=== PATIENT | male | born 1960 | race Caucasian/White ===

== ENCOUNTER 2018-06-06 15:55 | Inpatient (IN) | payer MEDICAID, OTHER ==
[2018-06-06] MEDS: ONDANSETRON 4 MG INJ IV (21:42)
[2018-06-06] MEDS: SOD CHLORIDE 0.9% 1,000 ML IV ×2 (21:42→23:08)
[2018-06-06] MEDS: KETOROLAC 15 MG INJ IV (21:42)
[2018-06-06] MEDS: BELLADONNA/PHENOBARBITAL TAB PO (21:43)
[2018-06-06] MEDS: LIDOCAINE/MYLANTA 40 ML BTL PO (21:43)
[2018-06-06 21:49] LABS: ADD MAN DIFF? NO
[2018-06-06 21:52] LABS: BASOPHILS % 0.3 % (0.0-2.0); EOSINOPHILS % 0.5 % (0.0-7.0); HEMATOCRIT 31.2 % (42.0-52.0); HEMOGLOBIN 9.8 g/dl (14.0-18.0); LYMPHOCYTES # 1.1 10^3/ul (0.8-2.9); MEAN CORPUSCULAR HEMOGLOBIN 25.4 pg (29.0-33.0); MEAN CORPUSCULAR HGB CONC 31.4 g/dl (32.0-37.0); MEAN CORPUSCULAR VOLUME 80.8 fl (82.0-101.0); MONOCYTE # 0.7 10^3/ul (0.3-0.9); MONOCYTES % 10.2 % (0.0-11.0); NEUTROPHIL # 4.6 10^3/ul (1.6-7.5); NEUTROPHILS % 71.7 % (39.0-77.0); PLATELET COUNT 297 10^3/UL (140-415); RED BLOOD COUNT 3.86 10^6/ul (4.70-6.10); RED CELL DISTRIBUTION WIDTH 12.8 % (11.5-14.5)
[2018-06-06 21:52] LABS: WHITE BLOOD COUNT 6.5 10^3/ul (4.8-10.8)
[2018-06-06 22:08] LABS: ALANINE AMINOTRANSFERASE 23 IU/L (13-69); ALBUMIN 4.4 g/dl (3.3-4.9); ALBUMIN/GLOBULIN RATIO 1.22; ALKALINE PHOSPHATASE 77 IU/L (42-121); ANION GAP 14 (5-13); ASPARTATE AMINO TRANSFERASE 19 IU/L (15-46); BILIRUBIN,INDIRECT 0.4 mg/dl (0-1.1); BILIRUBIN,TOTAL 0.4 mg/dl (0.2-1.3); BLOOD UREA NITROGEN 14 mg/dl (7-20); CALCIUM 9.2 mg/dl (8.4-10.2); CARBON DIOXIDE 28 mmol/L (21-31); CHLORIDE 100 mmol/L (97-110); CREATININE 0.86 mg/dl (0.61-1.24); Estimated GFR > 60 mL/min (>60); GLUCOSE 119 mg/dl (70-220); LIPASE 26 U/L (23-300); POTASSIUM 3.8 mmol/L (3.5-5.1); SODIUM 142 mmol/L (135-144)
[2018-06-06 22:14] LABS: INR 1.05; PROTIME 13.8 Sec (11.9-14.9); PT RATIO 1.1
[2018-06-06 22:15] LABS: PARTIAL THROMBOPLASTIN TIME 32.9 Sec (23.0-35.0)
[2018-06-06 22:18] LABS: ADD UMIC YES; UR ASCORBIC ACID NEGATIVE (NEGATIVE); UR BILIRUBIN (Dip) NEGATIVE (NEGATIVE); UR BLOOD (Dip) 1+ mg/dL (NEGATIVE); UR CLARITY SLIGHTLY CLOUDY (CLEAR); UR COLOR AMBER (YELLOW); UR GLUCOSE (Dip) NEGATIVE (NEGATIVE); UR KETONES (Dip) 2+ mg/dL (NEGATIVE); UR LEUKOCYTE ESTERASE (Dip) NEGATIVE Leu/ul (NEGATIVE); UR MUCUS MANY /HPF (NONE SEEN); UR NITRITE (Dip) NEGATIVE (NEGATIVE); UR RBC 10 /HPF (0-5); UR SPECIFIC GRAVITY (Dip) 1.033 (1.003-1.030); UR TOTAL PROTEIN (Dip) 2+ mg/dl (NEGATIVE); UR UROBILINOGEN (Dip) NEGATIVE (NEGATIVE); UR WBC 4 /HPF (0-5)
[2018-06-06 22:20] LABS: TROPONIN-I < 0.012 ng/ml (0.000-0.120)
[2018-06-06] MEDS: PIPER-TAZO 3.375 GM IV (PMX) 100 ML IVPB (23:03)
[2018-06-06] MEDS: IOHEXOL 14.3 MG(I)/ML (ADULT) BTL PO (23:30)
[2018-06-06] MEDS ORDERED: ACETAMINOPHEN 325 MG TAB PO (23:30)
[2018-06-06] MEDS ORDERED: NACL 0.9% 3 ML SYG IV (23:30)
[2018-06-06] MEDS ORDERED: morphine 2 MG INJ IV (23:30)
[2018-06-07] MEDS: SOD CHLORIDE 0.9% 1,000 ML IV ×3 (01:16→19:14)
[2018-06-07] MEDS: morphine 4 MG/ML VIAL IV ×2 (05:33→18:53)
[2018-06-07] MEDS: ALBUTEROL/IPRATROPIUM (NEB) 3 ML AMP HHN ×2 (05:39→22:54)
[2018-06-07 06:27] LABS: ADD MAN DIFF? NO
[2018-06-07 06:53] LABS: WHITE BLOOD COUNT 6.5 10^3/ul (4.8-10.8)
[2018-06-07 06:53] LABS: BASOPHILS % 0.2 % (0.0-2.0); EOSINOPHILS % 0.3 % (0.0-7.0); HEMATOCRIT 25.4 % (42.0-52.0); HEMOGLOBIN 8.1 g/dl (14.0-18.0); LYMPHOCYTES % 14.7 % (15.0-51.0); MEAN CORPUSCULAR HEMOGLOBIN 25.8 pg (29.0-33.0); MEAN CORPUSCULAR HGB CONC 31.9 g/dl (32.0-37.0); MEAN CORPUSCULAR VOLUME 80.9 fl (82.0-101.0); MONOCYTE # 0.5 10^3/ul (0.3-0.9); MONOCYTES % 7.8 % (0.0-11.0); NEUTROPHILS % 76.5 % (39.0-77.0); PLATELET COUNT 231 10^3/UL (140-415); RED BLOOD COUNT 3.14 10^6/ul (4.70-6.10); RED CELL DISTRIBUTION WIDTH 13.1 % (11.5-14.5)
[2018-06-07 07:10] LABS: HEMOGLOBIN A1C 5.2 % (0-5.9)
[2018-06-07 07:30] LABS: IRON 24 ug/dl (35-150)
[2018-06-07 07:35] LABS: ALANINE AMINOTRANSFERASE 21 IU/L (13-69); ALBUMIN 3.4 g/dl (3.3-4.9); ALBUMIN/GLOBULIN RATIO 1.21; ALKALINE PHOSPHATASE 58 IU/L (42-121); ANION GAP 11 (5-13); ASPARTATE AMINO TRANSFERASE 15 IU/L (15-46); BILIRUBIN,INDIRECT 0.4 mg/dl (0-1.1); BILIRUBIN,TOTAL 0.4 mg/dl (0.2-1.3); BLOOD UREA NITROGEN 13 mg/dl (7-20); CALCIUM 8.4 mg/dl (8.4-10.2); CARBON DIOXIDE 26 mmol/L (21-31); CHLORIDE 106 mmol/L (97-110); CHOL/HDL RATIO 2.4 RATIO; CHOLESTEROL 108 mg/dl (100-200); CREATININE 0.96 mg/dl (0.61-1.24); Estimated GFR > 60 mL/min (>60); GLUCOSE 98 mg/dl (70-220); HDL CHOLESTEROL 44 mg/dl (30-78); LDL CHOLESTEROL,CALCULATED 43 mg/dl; POTASSIUM 3.6 mmol/L (3.5-5.1); SODIUM 143 mmol/L (135-144); TOTAL PROTEIN 6.2 g/dl (6.1-8.1); TRIGLYCERIDES 105 mg/dl (0-149)
[2018-06-07 07:39] LABS: % IRON SATURATION 6 % SAT (22-52); TOTAL IRON BINDING CAPACITY 377 ug/dl (241-421)
[2018-06-07 07:56] LABS: FERRITIN 12.5 ng/ml (11.1-264.0)
[2018-06-07 11:25] LABS: ADD MAN DIFF? NO
[2018-06-07 11:27] LABS: WHITE BLOOD COUNT 4.8 10^3/ul (4.8-10.8)
[2018-06-07 11:27] LABS: BASOPHILS % 0.2 % (0.0-2.0); EOSINOPHILS % 0.8 % (0.0-7.0); HEMATOCRIT 23.6 % (42.0-52.0); HEMOGLOBIN 7.4 g/dl (14.0-18.0); LYMPHOCYTES # 1.1 10^3/ul (0.8-2.9); LYMPHOCYTES % 22.3 % (15.0-51.0); MEAN CORPUSCULAR HEMOGLOBIN 25.6 pg (29.0-33.0); MEAN CORPUSCULAR HGB CONC 31.4 g/dl (32.0-37.0); MEAN CORPUSCULAR VOLUME 81.7 fl (82.0-101.0); MEAN PLATELET VOLUME 9.7 fl (7.4-10.4); MONOCYTE # 0.5 10^3/ul (0.3-0.9); MONOCYTES % 9.5 % (0.0-11.0); NEUTROPHIL # 3.2 10^3/ul (1.6-7.5); PLATELET COUNT 212 10^3/UL (140-415); RED BLOOD COUNT 2.89 10^6/ul (4.70-6.10); RED CELL DISTRIBUTION WIDTH 12.9 % (11.5-14.5)
[2018-06-07] MEDS: ONDANSETRON 4 MG INJ IV ×2 (13:03→18:51)
[2018-06-07 16:44] LABS: OCCULT BLOOD STOOL POSITIVE (NEGATIVE)
[2018-06-07 17:09] LABS: ADD MAN DIFF? NO
[2018-06-07 17:11] LABS: BASOPHILS % 0.2 % (0.0-2.0); EOSINOPHILS % 0.3 % (0.0-7.0); HEMATOCRIT 29.5 % (42.0-52.0); HEMOGLOBIN 9.2 g/dl (14.0-18.0); LYMPHOCYTES # 0.8 10^3/ul (0.8-2.9); LYMPHOCYTES % 12.4 % (15.0-51.0); MEAN CORPUSCULAR HEMOGLOBIN 25.7 pg (29.0-33.0); MEAN CORPUSCULAR HGB CONC 31.2 g/dl (32.0-37.0); MEAN CORPUSCULAR VOLUME 82.4 fl (82.0-101.0); MEAN PLATELET VOLUME 9.5 fl (7.4-10.4); MONOCYTE # 0.5 10^3/ul (0.3-0.9); MONOCYTES % 6.9 % (0.0-11.0); NEUTROPHIL # 5.2 10^3/ul (1.6-7.5); NEUTROPHILS % 79.9 % (39.0-77.0); PLATELET COUNT 256 10^3/UL (140-415); RED BLOOD COUNT 3.58 10^6/ul (4.70-6.10); RED CELL DISTRIBUTION WIDTH 12.9 % (11.5-14.5)
[2018-06-07 17:11] LABS: WHITE BLOOD COUNT 6.5 10^3/ul (4.8-10.8)
[2018-06-07] MEDS: SOD FERRIC GLUC COMPLX 125 MG in SOD CHLORIDE 0.9% 100 ML IVPB (17:36)
[2018-06-07] MEDS: metroNIDAZOLE 500 MG/NS (PMX) 100 ML IVPB ×2 (19:30→23:37)
[2018-06-07] MEDS: CIPROFLOXACIN 400MG/D5W 200 ML IVPB ×3 (21:00→22:37)
[2018-06-07 23:22] LABS: ADD MAN DIFF? NO
[2018-06-07 23:25] LABS: BASOPHILS % 0.3 % (0.0-2.0); EOSINOPHILS % 0.3 % (0.0-7.0); HEMATOCRIT 28.4 % (42.0-52.0); HEMOGLOBIN 8.7 g/dl (14.0-18.0); LYMPHOCYTES # 0.7 10^3/ul (0.8-2.9); LYMPHOCYTES % 12.1 % (15.0-51.0); MEAN CORPUSCULAR HEMOGLOBIN 25.3 pg (29.0-33.0); MEAN CORPUSCULAR HGB CONC 30.6 g/dl (32.0-37.0); MEAN CORPUSCULAR VOLUME 82.6 fl (82.0-101.0); MEAN PLATELET VOLUME 10.2 fl (7.4-10.4); MONOCYTE # 0.5 10^3/ul (0.3-0.9); MONOCYTES % 7.5 % (0.0-11.0); NEUTROPHIL # 4.8 10^3/ul (1.6-7.5); NEUTROPHILS % 79.5 % (39.0-77.0); PLATELET COUNT 266 10^3/UL (140-415); RED BLOOD COUNT 3.44 10^6/ul (4.70-6.10)
[2018-06-08] MEDS: SOD CHLORIDE 0.9% 1,000 ML IV ×2 (05:16→14:43)
[2018-06-08] MEDS: metroNIDAZOLE 500 MG/NS (PMX) 100 ML IVPB ×3 (05:17→22:37)
[2018-06-08] MEDS: ONDANSETRON 4 MG INJ IV ×2 (05:17→12:28)
[2018-06-08 07:16] LABS: C-REACTIVE PROTEIN 4.2 mg/dl (0.0-0.9)
[2018-06-08 07:57] LABS: ERYTHROCYTE SEDIMENTATION RATE 27 mm/Hr (0-20)
[2018-06-08] MEDS: CIPROFLOXACIN 400MG/D5W 200 ML IVPB ×2 (09:18→21:02)
[2018-06-08] MEDS: SOD FERRIC GLUC COMPLX 125 MG in SOD CHLORIDE 0.9% 100 ML IVPB (12:28)
[2018-06-08] MEDS: METOCLOPRAMIDE 10 MG INJ IV ×3 (12:32→23:29)
[2018-06-08] MEDS ORDERED: SOD FERRIC GLUC COMPLX 125 MG in SOD CHLORIDE 0.9% 100 ML IVPB (15:00)
[2018-06-08] MEDS: ALBUTEROL/IPRATROPIUM (NEB) 3 ML AMP HHN (16:19)
[2018-06-09] MEDS: SOD CHLORIDE 0.9% 1,000 ML IV ×2 (01:14→05:04)
[2018-06-09] MEDS: METOCLOPRAMIDE 10 MG INJ IV ×3 (05:04→18:29)
[2018-06-09] MEDS: metroNIDAZOLE 500 MG/NS (PMX) 100 ML IVPB ×3 (05:20→22:57)
[2018-06-09 07:40] LABS: ADD MAN DIFF? NO
[2018-06-09 07:44] LABS: BASOPHILS % 0.2 % (0.0-2.0); EOSINOPHILS % 0.5 % (0.0-7.0); HEMOGLOBIN 7.7 g/dl (14.0-18.0); LYMPHOCYTES # 1.4 10^3/ul (0.8-2.9); MEAN CORPUSCULAR HEMOGLOBIN 25.4 pg (29.0-33.0); MEAN CORPUSCULAR HGB CONC 30.8 g/dl (32.0-37.0); MEAN CORPUSCULAR VOLUME 82.5 fl (82.0-101.0); MEAN PLATELET VOLUME 10.1 fl (7.4-10.4); MONOCYTE # 0.8 10^3/ul (0.3-0.9); MONOCYTES % 8.9 % (0.0-11.0); NEUTROPHIL # 6.4 10^3/ul (1.6-7.5); NEUTROPHILS % 73.7 % (39.0-77.0); PLATELET COUNT 293 10^3/UL (140-415); RED BLOOD COUNT 3.03 10^6/ul (4.70-6.10)
[2018-06-09 07:44] LABS: WHITE BLOOD COUNT 8.7 10^3/ul (4.8-10.8)
[2018-06-09 08:03] LABS: ANION GAP 13 (5-13); BLOOD UREA NITROGEN 10 mg/dl (7-20); CALCIUM 8.6 mg/dl (8.4-10.2); CARBON DIOXIDE 25 mmol/L (21-31); CHLORIDE 108 mmol/L (97-110); CREATININE 0.94 mg/dl (0.61-1.24); Estimated GFR > 60 mL/min (>60); GLUCOSE 119 mg/dl (70-220); POTASSIUM 3.5 mmol/L (3.5-5.1); SODIUM 146 mmol/L (135-144)
[2018-06-09] MEDS: CIPROFLOXACIN 400MG/D5W 200 ML IVPB ×2 (09:41→21:51)
[2018-06-09] MEDS: ALBUTEROL/IPRATROPIUM (NEB) 3 ML AMP HHN (10:03)
[2018-06-09] MEDS: SOD FERRIC GLUC COMPLX 125 MG in SOD CHLORIDE 0.9% 100 ML IVPB (12:28)
[2018-06-09 13:26] LABS: ANCA SCREEN NEGATIVE (NEGATIVE)
[2018-06-09 14:56] LABS: MYELOPEROXIDASE ANTIBODY <1.0 AI; PROTEINASE-3 ANTIBODY <1.0 AI
[2018-06-09] MEDS: HYDROCORTISONE 25 MG SUPP PR ×2 (15:22→21:52)
[2018-06-10] MEDS: METOCLOPRAMIDE 10 MG INJ IV ×4 (00:28→18:00)
[2018-06-10] MEDS: SOD CHLORIDE 0.9% 1,000 ML IV ×3 (03:35→17:14)
[2018-06-10] MEDS: metroNIDAZOLE 500 MG/NS (PMX) 100 ML IVPB ×3 (05:43→22:04)
[2018-06-10] MEDS: ALBUTEROL/IPRATROPIUM (NEB) 3 ML AMP HHN ×2 (05:53→19:57)
[2018-06-10 06:36] LABS: WHITE BLOOD COUNT 6.9 10^3/ul (4.8-10.8)
[2018-06-10 06:36] LABS: ABNORMAL IP MESSAGE 1; HEMATOCRIT 21.4 % (42.0-52.0); MEAN CORPUSCULAR HEMOGLOBIN 25.7 pg (29.0-33.0); MEAN CORPUSCULAR HGB CONC 30.8 g/dl (32.0-37.0); MEAN CORPUSCULAR VOLUME 83.3 fl (82.0-101.0); MEAN PLATELET VOLUME 10.3 fl (7.4-10.4); PLATELET COUNT 239 10^3/UL (140-415); POSITIVE DIFF @See below; RED BLOOD COUNT 2.57 10^6/ul (4.70-6.10); RED CELL DISTRIBUTION WIDTH 14.6 % (11.5-14.5)
[2018-06-10 06:58] LABS: ANION GAP 12 (5-13); BLOOD UREA NITROGEN 8 mg/dl (7-20); CALCIUM 8.2 mg/dl (8.4-10.2); CARBON DIOXIDE 24 mmol/L (21-31); CHLORIDE 108 mmol/L (97-110); CREATININE 0.87 mg/dl (0.61-1.24); Estimated GFR > 60 mL/min (>60); GLUCOSE 106 mg/dl (70-220); POTASSIUM 3.3 mmol/L (3.5-5.1); SODIUM 144 mmol/L (135-144)
[2018-06-10 07:31] LABS: ADD MAN DIFF? YES; HEMOGLOBIN 6.6 g/dl (14.0-18.0)
[2018-06-10] MEDS: BISACODYL (EC) 5 MG TAB PO ×2 (08:00→17:34)
[2018-06-10] MEDS: MAGNESIUM CITRATE 300 ML BTL PO (09:08)
[2018-06-10] MEDS: POLYETHYLENE GLYCOL 3350 119 GM POWDER PO ×2 (09:08→15:17)
[2018-06-10] MEDS: CIPROFLOXACIN 400MG/D5W 200 ML IVPB ×2 (09:13→20:53)
[2018-06-10] MEDS: HYDROCORTISONE 25 MG SUPP PR ×2 (09:13→20:53)
[2018-06-10 10:28] LABS: ANISOCYTOSIS 2+ (0-0); BAND NEUTROPHILS #M 0.2 10^3/ul (0.0-0.6); BAND NEUTROPHILS % (M) 3 % (0-4); EOSINOPHILS % (M) 1 % (0-7); LYMPHOCYTES #M 0.6 10^3/ul (0.8-2.9); LYMPHOCYTES % (M) 9 % (15-51); METAMYELOCYTES %M 1 % (0-0); MICROCYTOSIS 2+ (0-0); MONOCYTE #M 0.1 10^3/ul (0.3-0.9); MONOCYTES % (M) 2 % (0-11); OVALOCYTES 2+ (0-0); PLATELET ESTIMATE NORMAL; POIKILOCYTOSIS 1+ (0-0); POLYCHROMASIA 2+ (0-0); SEG NEUT #M 5.8 10^3/ul (1.6-7.5); SEGMENTED NEUTROPHILS (M) % 84 % (39-77); SMUDGE%M 43 % (0-0)
[2018-06-10] MEDS: POTASSIUM CHLORIDE 20 MEQ POWDER FOR ORAL SOLN PO (13:51)
[2018-06-10] MEDS: SOD FERRIC GLUC COMPLX 125 MG in SOD CHLORIDE 0.9% 100 ML IVPB (15:01)
[2018-06-11] MEDS: METOCLOPRAMIDE 10 MG INJ IV ×4 (00:36→17:28)
[2018-06-11] MEDS: SOD CHLORIDE 0.9% 1,000 ML IV ×3 (02:43→22:36)
[2018-06-11] MEDS: metroNIDAZOLE 500 MG/NS (PMX) 100 ML IVPB ×3 (06:04→22:36)
[2018-06-11 06:12] LABS: ADD MAN DIFF? NO
[2018-06-11 06:25] LABS: ABNORMAL IP MESSAGE 1; BASOPHILS % 0.2 % (0.0-2.0); EOSINOPHILS # 0.1 10^3/ul (0.0-0.5); HEMATOCRIT 21.4 % (42.0-52.0); LYMPHOCYTES # 0.7 10^3/ul (0.8-2.9); LYMPHOCYTES % 11.3 % (15.0-51.0); MEAN CORPUSCULAR HEMOGLOBIN 27.2 pg (29.0-33.0); MEAN CORPUSCULAR HGB CONC 32.2 g/dl (32.0-37.0); MEAN CORPUSCULAR VOLUME 84.3 fl (82.0-101.0); MONOCYTE # 0.6 10^3/ul (0.3-0.9); MONOCYTES % 9.2 % (0.0-11.0); NEUTROPHIL # 4.7 10^3/ul (1.6-7.5); NEUTROPHILS % 77.3 % (39.0-77.0); PLATELET COUNT 218 10^3/UL (140-415); POSITIVE DIFF @See below; RED BLOOD COUNT 2.54 10^6/ul (4.70-6.10); RED CELL DISTRIBUTION WIDTH 14.6 % (11.5-14.5)
[2018-06-11 06:25] LABS: WHITE BLOOD COUNT 6.1 10^3/ul (4.8-10.8)
[2018-06-11 06:33] LABS: HEMOGLOBIN 6.9 g/dl (14.0-18.0)
[2018-06-11 06:44] LABS: ANION GAP 11 (5-13); BLOOD UREA NITROGEN 5 mg/dl (7-20); CARBON DIOXIDE 23 mmol/L (21-31); CHLORIDE 108 mmol/L (97-110); Estimated GFR > 60 mL/min (>60); GLUCOSE 101 mg/dl (70-220); POTASSIUM 3.2 mmol/L (3.5-5.1); SODIUM 142 mmol/L (135-144)
[2018-06-11 07:42] LABS: IMMEDIATE SPIN CROSSMATCH 1 2
[2018-06-11] MEDS: HYDROCORTISONE 25 MG SUPP PR ×2 (09:00→21:00)
[2018-06-11] MEDS: CIPROFLOXACIN 400MG/D5W 200 ML IVPB ×2 (10:42→21:26)
[2018-06-11] MEDS: SOD FERRIC GLUC COMPLX 125 MG in SOD CHLORIDE 0.9% 100 ML IVPB (14:16)
[2018-06-11] MEDS: BISACODYL (EC) 5 MG TAB PO (14:22)
[2018-06-11] MEDS: ONDANSETRON 4 MG INJ IV (16:35)
[2018-06-11] MEDS: POTASSIUM CHLORIDE (SR) 20 MEQ TAB PO (17:13)
[2018-06-11] MEDS: MAGNESIUM CITRATE 300 ML BTL PO (17:28)
[2018-06-11] MEDS: POLYETHYLENE GLYCOL 17 GM PACKET PO (17:58)
[2018-06-11] MEDS: ALBUTEROL/IPRATROPIUM (NEB) 3 ML AMP HHN (22:50)
[2018-06-12] MEDS: METOCLOPRAMIDE 10 MG INJ IV ×4 (00:28→19:01)
[2018-06-12] MEDS: POLYETHYLENE GLYCOL 17 GM PACKET PO (05:19)
[2018-06-12] MEDS: metroNIDAZOLE 500 MG/NS (PMX) 100 ML IVPB ×3 (05:20→22:55)
[2018-06-12] MEDS ORDERED: PROPOFOL 200 MG INJ (07:00)
[2018-06-12 07:16] LABS: ADD MAN DIFF? NO
[2018-06-12 07:19] LABS: WHITE BLOOD COUNT 5.3 10^3/ul (4.8-10.8)
[2018-06-12 07:19] LABS: BASOPHILS % 0.4 % (0.0-2.0); EOSINOPHILS # 0.1 10^3/ul (0.0-0.5); EOSINOPHILS % 0.9 % (0.0-7.0); HEMATOCRIT 25.9 % (42.0-52.0); HEMOGLOBIN 8.3 g/dl (14.0-18.0); LYMPHOCYTES # 0.7 10^3/ul (0.8-2.9); LYMPHOCYTES % 12.4 % (15.0-51.0); MEAN CORPUSCULAR HEMOGLOBIN 27.5 pg (29.0-33.0); MEAN CORPUSCULAR VOLUME 85.8 fl (82.0-101.0); MEAN PLATELET VOLUME 9.6 fl (7.4-10.4); MONOCYTE # 0.6 10^3/ul (0.3-0.9); MONOCYTES % 10.3 % (0.0-11.0); NEUTROPHILS % 75.3 % (39.0-77.0); PLATELET COUNT 212 10^3/UL (140-415); RED BLOOD COUNT 3.02 10^6/ul (4.70-6.10); RED CELL DISTRIBUTION WIDTH 16.2 % (11.5-14.5)
[2018-06-12 07:41] LABS: MAGNESIUM 1.9 mg/dl (1.7-2.5)
[2018-06-12 07:41] LABS: PHOSPHORUS 3.6 mg/dl (2.5-4.9)
[2018-06-12 07:44] LABS: ANION GAP 10 (5-13); BLOOD UREA NITROGEN 3 mg/dl (7-20); CALCIUM 8.3 mg/dl (8.4-10.2); CARBON DIOXIDE 21 mmol/L (21-31); CHLORIDE 108 mmol/L (97-110); CREATININE 0.78 mg/dl (0.61-1.24); Estimated GFR > 60 mL/min (>60); GLUCOSE 100 mg/dl (70-220); POTASSIUM 3.3 mmol/L (3.5-5.1); SODIUM 139 mmol/L (135-144)
[2018-06-12] MEDS: BISACODYL (EC) 5 MG TAB PO (08:07)
[2018-06-12] MEDS: SOD CHLORIDE 0.9% 1,000 ML IV ×2 (08:07→14:39)
[2018-06-12] MEDS: HYDROCORTISONE 25 MG SUPP PR ×2 (08:08→21:39)
[2018-06-12] MEDS: CIPROFLOXACIN 400MG/D5W 200 ML IVPB ×2 (09:50→21:36)
[2018-06-12] MEDS: PROPOFOL 20 ML (17:08)
[2018-06-12] MEDS: FENTAnyl 50 MCG/ML VIAL (17:09)
[2018-06-12] MEDS ORDERED: ONDANSETRON 4 MG INJ IV (17:30)
[2018-06-12] MEDS: POTASSIUM CHLORIDE (SR) 20 MEQ TAB PO (19:00)
[2018-06-12] MEDS: ALBUTEROL/IPRATROPIUM (NEB) 3 ML AMP HHN (19:47)
[2018-06-13] MEDS: METOCLOPRAMIDE 10 MG INJ IV ×5 (01:25→23:09)
[2018-06-13] MEDS: SOD CHLORIDE 0.9% 1,000 ML IV ×3 (05:14→20:36)
[2018-06-13] MEDS: metroNIDAZOLE 500 MG/NS (PMX) 100 ML IVPB ×3 (06:18→23:08)
[2018-06-13] MEDS: IOHEXOL 14.3 MG(I)/ML (ADULT) BTL PO (07:48)
[2018-06-13] MEDS: DIATR MEGLU/DIATRIZOATE SODIUM 120 ML BTL (07:49)
[2018-06-13] MEDS: CIPROFLOXACIN 400MG/D5W 200 ML IVPB ×2 (08:39→20:35)
[2018-06-13] MEDS: HYDROCORTISONE 25 MG SUPP PR ×2 (08:39→20:36)
[2018-06-13 13:15] LABS: ADD MAN DIFF? NO
[2018-06-13 13:17] LABS: WHITE BLOOD COUNT 6.3 10^3/ul (4.8-10.8)
[2018-06-13 13:17] LABS: BASOPHILS % 0.2 % (0.0-2.0); EOSINOPHILS % 0.6 % (0.0-7.0); HEMATOCRIT 27.2 % (42.0-52.0); HEMOGLOBIN 8.9 g/dl (14.0-18.0); LYMPHOCYTES # 0.9 10^3/ul (0.8-2.9); LYMPHOCYTES % 14.3 % (15.0-51.0); MEAN CORPUSCULAR HEMOGLOBIN 27.6 pg (29.0-33.0); MEAN CORPUSCULAR HGB CONC 32.7 g/dl (32.0-37.0); MEAN CORPUSCULAR VOLUME 84.5 fl (82.0-101.0); MEAN PLATELET VOLUME 10.3 fl (7.4-10.4); MONOCYTE # 0.6 10^3/ul (0.3-0.9); MONOCYTES % 9.8 % (0.0-11.0); NEUTROPHIL # 4.7 10^3/ul (1.6-7.5); NEUTROPHILS % 74.5 % (39.0-77.0); PLATELET COUNT 249 10^3/UL (140-415); RED BLOOD COUNT 3.22 10^6/ul (4.70-6.10); RED CELL DISTRIBUTION WIDTH 16.7 % (11.5-14.5)
[2018-06-13 13:35] LABS: ANION GAP 16 (5-13); BLOOD UREA NITROGEN < 2 mg/dl (7-20); CALCIUM 8.2 mg/dl (8.4-10.2); CARBON DIOXIDE 20 mmol/L (21-31); CHLORIDE 104 mmol/L (97-110); CREATININE 0.68 mg/dl (0.61-1.24); Estimated GFR > 60 mL/min (>60); GLUCOSE 111 mg/dl (70-220); SODIUM 140 mmol/L (135-144)
[2018-06-13] MEDS: PANTOPRAZOLE (EC) 40 MG TAB PO (17:31)
[2018-06-13] MEDS: ALBUTEROL/IPRATROPIUM (NEB) 3 ML AMP HHN (18:01)
[2018-06-13] MEDS: POTASSIUM CHLORIDE (SR) 20 MEQ TAB PO (18:33)
[2018-06-13] MEDS ORDERED: morphine LIQ (10 MG/5 ML) CUP PO (21:30)
[2018-06-14] MEDS: PANTOPRAZOLE (EC) 40 MG TAB PO (05:47)
[2018-06-14] MEDS: METOCLOPRAMIDE 10 MG INJ IV ×2 (05:47→12:41)
[2018-06-14] MEDS: metroNIDAZOLE 500 MG/NS (PMX) 100 ML IVPB ×2 (05:47→14:05)
[2018-06-14 08:06] LABS: ADD MAN DIFF? NO
[2018-06-14 08:08] LABS: WHITE BLOOD COUNT 7.5 10^3/ul (4.8-10.8)
[2018-06-14 08:08] LABS: BASOPHILS % 0.3 % (0.0-2.0); EOSINOPHILS # 0.1 10^3/ul (0.0-0.5); EOSINOPHILS % 0.7 % (0.0-7.0); HEMATOCRIT 26.3 % (42.0-52.0); HEMOGLOBIN 8.4 g/dl (14.0-18.0); LYMPHOCYTES # 1.4 10^3/ul (0.8-2.9); LYMPHOCYTES % 18.4 % (15.0-51.0); MEAN CORPUSCULAR HEMOGLOBIN 27.1 pg (29.0-33.0); MEAN CORPUSCULAR HGB CONC 31.9 g/dl (32.0-37.0); MEAN CORPUSCULAR VOLUME 84.8 fl (82.0-101.0); MEAN PLATELET VOLUME 10.7 fl (7.4-10.4); MONOCYTE # 0.9 10^3/ul (0.3-0.9); MONOCYTES % 11.3 % (0.0-11.0); NEUTROPHIL # 5.2 10^3/ul (1.6-7.5); NEUTROPHILS % 68.8 % (39.0-77.0); PLATELET COUNT 250 10^3/UL (140-415); POSITIVE DIFF @See below; RED CELL DISTRIBUTION WIDTH 17.7 % (11.5-14.5)
[2018-06-14 08:34] LABS: ANION GAP 7 (5-13); CARBON DIOXIDE 22 mmol/L (21-31); CHLORIDE 111 mmol/L (97-110); CREATININE 0.72 mg/dl (0.61-1.24); Estimated GFR > 60 mL/min (>60); GLUCOSE 102 mg/dl (70-220); POTASSIUM 3.4 mmol/L (3.5-5.1); SODIUM 140 mmol/L (135-144)
[2018-06-14 08:44] LABS: BLOOD UREA NITROGEN < 2 mg/dl (7-20)
[2018-06-14] MEDS: CIPROFLOXACIN 400MG/D5W 200 ML IVPB (09:16)
[2018-06-14] MEDS: HYDROCORTISONE 25 MG SUPP PR (09:19)
[2018-06-14 09:21] LABS: ANISOCYTOSIS 1+ (0-0); BAND NEUTROPHILS #M 0.3 10^3/ul (0.0-0.6); BAND NEUTROPHILS % (M) 5 % (0-4); ELLIPTO 1+ (0-0); ERYTHROBLAST% (NRBC) (M) 1 % (0-0); GIANT THROMBO% (M) 2 % (0-0); LYMPHOCYTES % (M) 14 % (15-51); MICROCYTOSIS 1+ (0-0); MONOCYTE #M 0.1 10^3/ul (0.3-0.9); MONOCYTES % (M) 2 % (0-11); PLATELET ESTIMATE NORMAL; POIKILOCYTOSIS 1+ (0-0); POLYCHROMASIA 2+ (0-0); SEG NEUT #M 5.9 10^3/ul (1.6-7.5); SEGMENTED NEUTROPHILS (M) % 79 % (39-77); SMUDGE%M 7 % (0-0)
[2018-06-14] MEDS: SOD CHLORIDE 0.9% 1,000 ML IV (09:21)
[2018-06-14] MEDS: POTASSIUM CHLORIDE (SR) 20 MEQ TAB PO (14:05)
[2018-06-14] MEDS: ALBUTEROL/IPRATROPIUM (NEB) 3 ML AMP HHN (14:51)
== END 2018-06-14 21:12 | disposition home or self-care (01) | DRG 378 ==
LOC: 5EC 23:05 → E/R 15:55
PROC: 30233N1 Transfusion of Nonautologous Red Blood Cells into Peripheral Vein, Percutaneous Approach (ICD-10-PCS; principal; 2018-06-12 16:00)
PROC: 0DBK8ZX Excision of Ascending Colon, Via Natural or Artificial Opening Endoscopic, Diagnostic (ICD-10-PCS; 2018-06-12 16:00)
PROC: 0DBP8ZX Excision of Rectum, Via Natural or Artificial Opening Endoscopic, Diagnostic (ICD-10-PCS; 2018-06-12 16:00)
PROC: 0DB58ZX Excision of Esophagus, Via Natural or Artificial Opening Endoscopic, Diagnostic (ICD-10-PCS; 2018-06-12 16:00)
DX: K92.1 Melena (principal); K56.609 Unspecified intestinal obstruction, unspecified as to partial versus complete obstruction; K52.9 Noninfective gastroenteritis and colitis, unspecified; D50.0 Iron deficiency anemia secondary to blood loss (chronic); J45.909 Unspecified asthma, uncomplicated; D49.512 Neoplasm of unspecified behavior of left kidney; K63.5 Polyp of colon; K26.9 Duodenal ulcer, unspecified as acute or chronic, without hemorrhage or perforation; K20.9 Esophagitis, unspecified; R31.29 Other microscopic hematuria
CPT/HCPCS: 36415; 36430; 74176; 74250; 76775; 78278; 80048; 80053; 80061; 81001; 82270; 82378; 82728; 83036; 83540; 83690; 83735; 84100; 84443; 84484; 85025; 85610; 85651; 85730; 86021; 86140; 86850; 86900; 86901; 86920; 88305; 88312; 88313; 93005; 94640; 94664; 96374; 96375; 99285-25

== ENCOUNTER 2018-10-01 08:28 | Inpatient (IN) | payer MEDICAID ==
[2018-10-01] MEDS: SOD CHLORIDE 0.9% 1,000 ML IV (10:04)
[2018-10-01 10:49] LABS: ADD MAN DIFF? NO
[2018-10-01 10:52] LABS: WHITE BLOOD COUNT 4.2 10^3/ul (4.8-10.8)
[2018-10-01 10:52] LABS: ABNORMAL IP MESSAGE 1; BASOPHILS % 0.5 % (0.0-2.0); EOSINOPHILS # 0.1 10^3/ul (0.0-0.5); EOSINOPHILS % 1.4 % (0.0-7.0); HEMOGLOBIN 7.2 g/dl (14.0-18.0); LYMPHOCYTES # 1.4 10^3/ul (0.8-2.9); LYMPHOCYTES % 32.5 % (15.0-51.0); MEAN CORPUSCULAR HEMOGLOBIN 18.7 pg (29.0-33.0); MEAN CORPUSCULAR HGB CONC 28.8 g/dl (32.0-37.0); MEAN CORPUSCULAR VOLUME 64.9 fl (82.0-101.0); MEAN PLATELET VOLUME 10.1 fl (7.4-10.4); MONOCYTE # 0.4 10^3/ul (0.3-0.9); MONOCYTES % 9.9 % (0.0-11.0); NEUTROPHIL # 2.3 10^3/ul (1.6-7.5); NEUTROPHILS % 55.5 % (39.0-77.0); PLATELET COUNT 420 10^3/UL (140-415); POSITIVE DIFF @See below; RED BLOOD COUNT 3.85 10^6/ul (4.70-6.10); RED CELL DISTRIBUTION WIDTH 17.7 % (11.5-14.5)
[2018-10-01 11:10] LABS: ALANINE AMINOTRANSFERASE 29 IU/L (13-69); ALBUMIN 4.2 g/dl (3.3-4.9); ALKALINE PHOSPHATASE 72 IU/L (42-121); ANION GAP 6 (5-13); ASPARTATE AMINO TRANSFERASE 18 IU/L (15-46); BILIRUBIN,INDIRECT 0.5 mg/dl (0-1.1); BILIRUBIN,TOTAL 0.5 mg/dl (0.2-1.3); BLOOD UREA NITROGEN 13 mg/dl (7-20); CALCIUM 9.2 mg/dl (8.4-10.2); CARBON DIOXIDE 26 mmol/L (21-31); CHLORIDE 108 mmol/L (97-110); CREATININE 0.78 mg/dl (0.61-1.24); Estimated GFR > 60 mL/min (>60); GLUCOSE 111 mg/dl (70-220); LIPASE 60 U/L (23-300); POTASSIUM 4.2 mmol/L (3.5-5.1); SODIUM 140 mmol/L (135-144); TOTAL PROTEIN 7.7 g/dl (6.1-8.1)
[2018-10-01 11:12] LABS: INR 1.01; PROTIME 13.4 Sec (11.9-14.9)
[2018-10-01 11:13] LABS: PARTIAL THROMBOPLASTIN TIME 30.3 Sec (23.0-35.0)
[2018-10-01] MEDS ORDERED: ZOLPIDEM 5 MG TAB PO (15:00)
[2018-10-01] MEDS: DOCUSATE SODIUM 100 MG CAP PO (15:00)
[2018-10-01] MEDS ORDERED: ACETAMINOPHEN 325 MG TAB PO (15:00)
[2018-10-01] MEDS ORDERED: HYDROCODONE/APAP (5/325) TAB PO (15:00)
[2018-10-01] MEDS: ALBUTEROL 0.083% (NEB) 2.5 MG/3 ML AMP HHN (15:00)
[2018-10-01] MEDS: MAGNESIUM CITRATE 300 ML BTL PO (19:11)
[2018-10-01] MEDS: BISACODYL (EC) 5 MG TAB PO (19:12)
[2018-10-01 20:59] LABS: HEMATOCRIT 26.5 % (42.0-52.0); HEMOGLOBIN 7.9 g/dl (14.0-18.0)
[2018-10-01] MEDS: POLYETHYLENE GLYCOL 3350 119 GM POWDER PO (21:17)
[2018-10-01] MEDS: MONTELUKAST 10 MG TAB PO (21:18)
[2018-10-01 22:03] LABS: IMMEDIATE SPIN CROSSMATCH 1 2
[2018-10-01] MEDS: SOD CHLORIDE 0.9% 250 ML IV* (22:24)
[2018-10-02] MEDS: DEXTROSE 5%-0.45% NACL 1,000 ML IV ×2 (01:22→13:31)
[2018-10-02] MEDS: DOCUSATE SODIUM 100 MG CAP PO ×2 (03:00→15:00)
[2018-10-02] MEDS ORDERED: PANTOPRAZOLE (EC) 40 MG TAB PO (04:52)
[2018-10-02] MEDS: POLYETHYLENE GLYCOL 3350 119 GM POWDER PO (05:45)
[2018-10-02] MEDS: PANTOPRAZOLE (EC) 40 MG TAB PO (05:45)
[2018-10-02 07:19] LABS: ADD MAN DIFF? NO
[2018-10-02 07:23] LABS: WHITE BLOOD COUNT 6.5 10^3/ul (4.8-10.8)
[2018-10-02 07:23] LABS: ABNORMAL IP MESSAGE 1; BASOPHILS % 0.3 % (0.0-2.0); EOSINOPHILS # 0.1 10^3/ul (0.0-0.5); EOSINOPHILS % 1.2 % (0.0-7.0); HEMOGLOBIN 9.8 g/dl (14.0-18.0); LYMPHOCYTES # 1.2 10^3/ul (0.8-2.9); MEAN CORPUSCULAR HEMOGLOBIN 20.6 pg (29.0-33.0); MEAN CORPUSCULAR HGB CONC 29.7 g/dl (32.0-37.0); MEAN CORPUSCULAR VOLUME 69.5 fl (82.0-101.0); MEAN PLATELET VOLUME 9.8 fl (7.4-10.4); MONOCYTE # 0.7 10^3/ul (0.3-0.9); NEUTROPHIL # 4.5 10^3/ul (1.6-7.5); NEUTROPHILS % 69.2 % (39.0-77.0); PLATELET COUNT 404 10^3/UL (140-415); POSITIVE DIFF @See below; RED BLOOD COUNT 4.75 10^6/ul (4.70-6.10); RED CELL DISTRIBUTION WIDTH 22.5 % (11.5-14.5)
[2018-10-02 07:54] LABS: ALANINE AMINOTRANSFERASE 22 IU/L (13-69); ALBUMIN 4.1 g/dl (3.3-4.9); ALKALINE PHOSPHATASE 72 IU/L (42-121); ANION GAP 11 (5-13); ASPARTATE AMINO TRANSFERASE 33 IU/L (15-46); BILIRUBIN,INDIRECT 1.2 mg/dl (0-1.1); BILIRUBIN,TOTAL 1.2 mg/dl (0.2-1.3); BLOOD UREA NITROGEN 9 mg/dl (7-20); CARBON DIOXIDE 22 mmol/L (21-31); CHLORIDE 109 mmol/L (97-110); CREATININE 0.74 mg/dl (0.61-1.24); Estimated GFR > 60 mL/min (>60); GLUCOSE 102 mg/dl (70-220); MAGNESIUM 2.1 mg/dl (1.7-2.5); PHOSPHORUS 4.1 mg/dl (2.5-4.9); POTASSIUM 4.1 mmol/L (3.5-5.1); SODIUM 142 mmol/L (135-144); TOTAL PROTEIN 7.5 g/dl (6.1-8.1)
[2018-10-02] MEDS: BISACODYL (EC) 5 MG TAB PO (08:49)
[2018-10-02] MEDS: ONDANSETRON 4 MG INJ IV (12:06)
[2018-10-02] MEDS: PROPOFOL 40 ML (15:30)
[2018-10-02] MEDS: LIDOCAINE 2% (SDV) 5 ML INJ (15:30)
[2018-10-02] MEDS ORDERED: HYDROCORTISONE 25 MG SUPP PR (16:30)
[2018-10-02] MEDS: MONTELUKAST 10 MG TAB PO (21:04)
[2018-10-03] MEDS: DOCUSATE SODIUM 100 MG CAP PO ×2 (02:46→15:00)
[2018-10-03] MEDS: PANTOPRAZOLE (EC) 40 MG TAB PO (05:24)
[2018-10-03] MEDS ORDERED: LIDOCAINE 2% JELLY 30 ML TOP (21:00)
[2018-10-03] MEDS ORDERED: NITROGLYCERIN 2% 30 GM OINT TOP (21:00)
[2018-10-03] MEDS: LIDOCAINE 2% JELLY 5 ML TOP (21:29)
[2018-10-03] MEDS: HYDROCORTISONE 1% 28.35 GM OINT TOP (21:29)
[2018-10-03] MEDS: NITROGLYCERIN 2% 1 GM OINT PKT TD (21:29)
[2018-10-03] MEDS: MONTELUKAST 10 MG TAB PO (21:30)
[2018-10-03] MEDS: MESALAMINE 1000 MG SUPP PR (21:30)
[2018-10-04] MEDS: DOCUSATE SODIUM 100 MG CAP PO ×2 (03:30→13:45)
[2018-10-04] MEDS: PANTOPRAZOLE (EC) 40 MG TAB PO (05:47)
[2018-10-04 06:08] LABS: ADD MAN DIFF? NO
[2018-10-04 06:16] LABS: ABNORMAL IP MESSAGE 1; BASOPHILS % 0.2 % (0.0-2.0); EOSINOPHILS # 0.1 10^3/ul (0.0-0.5); EOSINOPHILS % 1.4 % (0.0-7.0); HEMATOCRIT 28.2 % (42.0-52.0); HEMOGLOBIN 8.6 g/dl (14.0-18.0); LYMPHOCYTES # 1.5 10^3/ul (0.8-2.9); MEAN CORPUSCULAR HEMOGLOBIN 20.4 pg (29.0-33.0); MEAN CORPUSCULAR HGB CONC 30.5 g/dl (32.0-37.0); MEAN PLATELET VOLUME 10.4 fl (7.4-10.4); MONOCYTE # 0.5 10^3/ul (0.3-0.9); MONOCYTES % 10.5 % (0.0-11.0); NEUTROPHILS % 58.7 % (39.0-77.0); PLATELET COUNT 370 10^3/UL (140-415); POSITIVE DIFF @See below; RED BLOOD COUNT 4.21 10^6/ul (4.70-6.10); RED CELL DISTRIBUTION WIDTH 22.2 % (11.5-14.5)
[2018-10-04 06:16] LABS: WHITE BLOOD COUNT 5.1 10^3/ul (4.8-10.8)
[2018-10-04 06:36] LABS: INR 1.06; PROTIME 13.9 Sec (11.9-14.9); PT RATIO 1.1
[2018-10-04 06:37] LABS: ALANINE AMINOTRANSFERASE 22 IU/L (13-69); ALBUMIN 3.7 g/dl (3.3-4.9); ALBUMIN/GLOBULIN RATIO 1.15; ALKALINE PHOSPHATASE 60 IU/L (42-121); ANION GAP 9 (5-13); ASPARTATE AMINO TRANSFERASE 14 IU/L (15-46); BILIRUBIN,INDIRECT 0.7 mg/dl (0-1.1); BILIRUBIN,TOTAL 0.7 mg/dl (0.2-1.3); BLOOD UREA NITROGEN 15 mg/dl (7-20); CALCIUM 8.9 mg/dl (8.4-10.2); CARBON DIOXIDE 23 mmol/L (21-31); CHLORIDE 108 mmol/L (97-110); CREATININE 0.86 mg/dl (0.61-1.24); Estimated GFR > 60 mL/min (>60); GLUCOSE 103 mg/dl (70-220); MAGNESIUM 1.7 mg/dl (1.7-2.5); PARTIAL THROMBOPLASTIN TIME 34.4 Sec (23.0-35.0); POTASSIUM 4.2 mmol/L (3.5-5.1); SODIUM 140 mmol/L (135-144); TOTAL PROTEIN 6.9 g/dl (6.1-8.1)
[2018-10-04] MEDS: LIDOCAINE 2% JELLY 5 ML TOP ×2 (10:19→20:47)
[2018-10-04] MEDS: NITROGLYCERIN 2% 1 GM OINT PKT TD ×2 (10:19→20:46)
[2018-10-04] MEDS: HYDROCORTISONE 1% 28.35 GM OINT TOP ×2 (10:19→20:47)
[2018-10-04] MEDS: POLYETHYLENE GLYCOL 17 GM PACKET PO (13:44)
[2018-10-04 14:42] LABS: HEMATOCRIT 28.5 % (42.0-52.0); HEMOGLOBIN 8.6 g/dl (14.0-18.0)
[2018-10-04] MEDS: MESALAMINE 1000 MG SUPP PR (20:46)
[2018-10-04] MEDS: MONTELUKAST 10 MG TAB PO (20:47)
[2018-10-05] MEDS: DOCUSATE SODIUM 100 MG CAP PO ×2 (03:57→14:27)
[2018-10-05] MEDS: PANTOPRAZOLE (EC) 40 MG TAB PO (05:25)
[2018-10-05 06:53] LABS: ADD MAN DIFF? NO
[2018-10-05 06:54] LABS: WHITE BLOOD COUNT 5.2 10^3/ul (4.8-10.8)
[2018-10-05 06:54] LABS: ABNORMAL IP MESSAGE 1; BASOPHILS % 0.6 % (0.0-2.0); EOSINOPHILS # 0.1 10^3/ul (0.0-0.5); EOSINOPHILS % 1.7 % (0.0-7.0); HEMATOCRIT 27.6 % (42.0-52.0); HEMOGLOBIN 8.4 g/dl (14.0-18.0); LYMPHOCYTES # 1.4 10^3/ul (0.8-2.9); LYMPHOCYTES % 26.6 % (15.0-51.0); MEAN CORPUSCULAR HEMOGLOBIN 20.4 pg (29.0-33.0); MEAN CORPUSCULAR HGB CONC 30.4 g/dl (32.0-37.0); MEAN PLATELET VOLUME 9.9 fl (7.4-10.4); MONOCYTE # 0.6 10^3/ul (0.3-0.9); MONOCYTES % 10.7 % (0.0-11.0); NEUTROPHIL # 3.1 10^3/ul (1.6-7.5); NEUTROPHILS % 60.2 % (39.0-77.0); PLATELET COUNT 332 10^3/UL (140-415); POSITIVE DIFF @See below; RED BLOOD COUNT 4.12 10^6/ul (4.70-6.10); RED CELL DISTRIBUTION WIDTH 22.6 % (11.5-14.5)
[2018-10-05 07:16] LABS: ALANINE AMINOTRANSFERASE 23 IU/L (13-69); ALBUMIN 3.7 g/dl (3.3-4.9); ALBUMIN/GLOBULIN RATIO 1.27; ALKALINE PHOSPHATASE 56 IU/L (42-121); ANION GAP 7 (5-13); ASPARTATE AMINO TRANSFERASE 17 IU/L (15-46); BLOOD UREA NITROGEN 14 mg/dl (7-20); CALCIUM 8.9 mg/dl (8.4-10.2); CARBON DIOXIDE 25 mmol/L (21-31); CHLORIDE 107 mmol/L (97-110); CREATININE 0.81 mg/dl (0.61-1.24); Estimated GFR > 60 mL/min (>60); GLUCOSE 96 mg/dl (70-220); POTASSIUM 3.9 mmol/L (3.5-5.1); SODIUM 139 mmol/L (135-144); TOTAL PROTEIN 6.6 g/dl (6.1-8.1)
[2018-10-05] MEDS: POLYETHYLENE GLYCOL 17 GM PACKET PO (09:00)
[2018-10-05] MEDS: NITROGLYCERIN 2% 1 GM OINT PKT TD (09:26)
[2018-10-05] MEDS: LIDOCAINE 2% JELLY 5 ML TOP (09:27)
[2018-10-05] MEDS: HYDROCORTISONE 1% 28.35 GM OINT TOP (09:27)
== END 2018-10-05 20:25 | disposition home or self-care (01) | DRG 394 ==
LOC: E/R 08:28 → PP2 12:38
PROC: 0DBP8ZX Excision of Rectum, Via Natural or Artificial Opening Endoscopic, Diagnostic (ICD-10-PCS; principal; 2018-10-02 15:00)
PROC: 30233N1 Transfusion of Nonautologous Red Blood Cells into Peripheral Vein, Percutaneous Approach (ICD-10-PCS; 2018-10-02 15:00)
DX: K62.1 Rectal polyp (principal); D62 Acute posthemorrhagic anemia; K64.8 Other hemorrhoids; D50.0 Iron deficiency anemia secondary to blood loss (chronic)
CPT/HCPCS: 36415; 36430; 71045; 80053; 83690; 83735; 84100; 85014; 85018; 85025; 85610; 85730; 86850; 86900; 86901; 86920; 88305; 93005; 96360; 96361; 99285-25